=== PATIENT | male | born 1970 | race Caucasian/White ===

== ENCOUNTER → 2016-04-09 | Outpatient (CLI) | payer BC ==
[~2016-04-09] VITALS: Ht 177.8 cm; Wt 83.9 kg
[~2016-04-09] MED LIST: NEXIUM20 MG PO
== END | disposition home or self-care (01) ==
LOC: AMB 12:06
DX: K21.9 Gastro-esophageal reflux disease without esophagitis (principal); K20.9 Esophagitis, unspecified; K44.9 Diaphragmatic hernia without obstruction or gangrene
CPT/HCPCS: 88305; B4087; J2250; J3010